=== PATIENT | male | born 1990 | race Two or more races ===

== ENCOUNTER 2017-11-21 00:28 | Emergency (ER) | payer SELFPAY ==
[2017-11-21] MEDS ORDERED: NORMAL SALINE 1000 ML 1,000 ML IV ONE (00:39)
[2017-11-21 00:59] LABS: ABSOLUTE LYMPHOCYTES (AUTO) 1.8 10^3/uL (0.5-4.7); ABSOLUTE MONOCYTES (AUTO) 0.3 10^3/uL (0.1-1.4); ABSOLUTE NEUT (AUTO) 4.9 10^3/uL (1.7-8.2); BASOPHILS % (AUTO) 0.6 % (0-2); EOSINOPHILS % (AUTO) 0.6 % (0-6); HEMATOCRIT 44.8 % (37.9-51.0); HEMOGLOBIN 15.6 g/dL (13.5-17.0); LYMPHOCYTES % (AUTO) 25.6 % (13-45); MEAN CORPUSCULAR HEMOGLOBIN 31.1 pg (27.0-33.4); MEAN CORPUSCULAR HGB CONC 34.9 g/dL (32.0-36.0); MEAN CORPUSCULAR VOLUME 89 fl (80-97); MONOCYTES % (AUTO) 4.1 % (3-13); PLATELET COUNT 260 10^3/uL (150-450); RED BLOOD COUNT 5.02 10^6/uL (4.35-5.55); SEGMENTED NEUTROPHILS % (AUTO) 69.1 % (42-78); TOTAL CELLS COUNTED % (AUTO) 100 %; WHITE BLOOD COUNT 7.1 10^3/uL (4.0-10.5)
[2017-11-21 01:17] LABS: ALANINE AMINOTRANSFERASE 46 U/L (21-72); ALBUMIN 4.6 g/dL (3.5-5.0); ALCOHOL 157 mg/dL (NONE DETECTED); ALKALINE PHOSPHATASE 103 U/L (38-126); ASPARTATE AMINO TRANSFERASE 33 U/L (17-59); BILIRUBIN,DIRECT 0.3 mg/dL (0.0-0.4); BILIRUBIN,TOTAL 0.6 mg/dL (0.2-1.3); BLOOD UREA NITROGEN 11 mg/dL (7-20); CALCIUM 9.3 mg/dL (8.4-10.2); GLUCOSE 117 mg/dL (75-110); POTASSIUM 4.1 mmol/L (3.6-5.0); TOTAL PROTEIN 7.6 g/dL (6.3-8.2)
[2017-11-21 01:22] LABS: CARBON DIOXIDE 23 mmol/L (22-30); CHLORIDE 104 mmol/L (98-107); SODIUM 148.2 mmol/L (137-145)
[2017-11-21 01:28] LABS: ANION GAP 21 (5-19)
--- NOTE | 2017-11-21 02:16 | ER Document Report ---
ED General - General Chief Complaint: ETOH Abuse Stated Complaint: UNRESPONSIVE Time Seen by Provider: 11/21/17 00:34 Notes: Patient is a 27-year-old male who presents with complaint of found unresponsive. Today drink alcohol and did cocaine. After the cocaine he did have a bloody nose. He then was found unresponsive at times was flailing about. No history of seizures. He comes in with his eyes open. He does speak Mosotho. Will ask him if he is having the pain or headache in Mosotho. He answers no. As I leave the room he then fully wakens often sits up and starts speaking with the nurses and the staff. Patient has no complaints at this time. - Related Data Allergies/Adverse Reactions: No Known Allergies Allergy (Verified 07/12/12 10:58) Past Medical History - Social History Smoking Status: Current Some Day Smoker Frequency of alcohol use: Occasional Drug Abuse: Cocaine Family History: Reviewed & Not Pertinent - Immunizations Hx Diphtheria, Pertussis, Tetanus Vaccination: Yes Review of Systems - Review of Systems -: Yes ROS unobtainable due to patient's medical condition - Review systems is limited due to patient's altered mental status. Physical Exam - Notes Notes: General Appearance: Laying in bed in no distress. Patient actually looks somewhat frustrated. He will follow commands. Vitals: reviewed, See vital signs table. Head: no swelling or tenderness to the head Eyes: PERRL, EOMI, Conjuctiva clear Mouth: No decreasd moisture. No tongue biting. Throat: No tonsillar inflammation, No airway obstruction, No lymphadenopathy Neck: Supple, no neck tenderness, No thyromegaly Lungs: No wheezing, No rales, No rhonci, No accessory muscle use, good air exchange bilaterally. Heart: Normal rate, Regular rythm, No murmur, no rub Abdomen: Normal BS, soft, No rigidity, No abdominal tenderness, No guarding, no rebound, no abdominal masses, no organomegaly Extremities: strength 5/5 in all extremities, good pulses in all extremities, no swelling or tenderness in the extremities, no edema. Skin: warm, dry, appropriate color, no rash Neuro: speech clear, oriented x 3, normal affect, responds appropriately to questions. Cranial nerves II through XII are intact. Distal sensation intact. Patient is able to move all 4 extremities. Course - Re-evaluation Re-evalutation: 11/21/17 05:51 I used [employer] insurance case manager service insurance case manager ID #[id number] to help reevaluate the patient in 2 translate exam findings and disposition to the patient and his family. Mostly members did speak Mongolian fluently. Patient did not and that is why I used the insurance case manager. Patient admits to using cocaine and alcohol. He denies doing anything else. He says it is not remember much after using the cocaine and actually passed out. Patient has a negative CT scan of the brain. He has no chest pain or shortness of breath. He is able stand and walk without any difficulty. He looks well. Feel he is safe to be discharged home at this time. Informed patient that he should never ever used cocaine again as this can lead to brain bleed, stroke, heart attack. Patient is understanding of this and says he will not use drugs again. I informed patient he should return to ER immediately if he has severe headache, chest pain, difficulty breathing, recurrent syncope, or if he feels unwell. Patient agrees with plan will be discharged home. Dictation of this chart was performed using voice recognition software; therefore, there may be some unintended grammatical errors. - Laboratory Result Diagrams: 11/21/17 00:40 11/21/17 00:40 Laboratory results interpreted by me: 11/21/17 00:40 Sodium 148.2 H Anion Gap 21 H Glucose 117 H - EKG Interpretation by Me Additional EKG results interpreted by me: 11/21/17 02:16 EKG is reviewed and interpreted by me. EKG shows sinus rhythm with rate of [address] segment elevation or depression. No ischemic T-wave inversions. Pure interval, QRS duration, QTc intervals are within normal range. No old EKG available for comparison. 11/21/17 02:32 Discharge - Discharge Clinical Impression: ETOH abuse, Cocaine abuse Altered mental status Qualifiers: Altered mental status type: unspecified Qualified Code(s): R41.82 - Altered mental status, unspecified Condition: Good Disposition: HOME, SELF-CARE Additional Instructions: Please avoid alcohol and cocaine. These caused you to become confused and pass out. Please return to the ER immediately if you have severe headaches, vomiting , chest pain, difficulty breathing, or feel unwell.
--- NOTE | 2017-11-21 02:44 | RADIOLOGY REPORT (SQ) ---
EXAM DESCRIPTION: CT CERVICAL SPINE WITHOUT CLINICAL HISTORY: altered mental status COMPARISON: None available TECHNIQUE: Axial CT of the cervical spine obtained without contrast. FINDINGS: Straightening of the cervical lordosis is likely secondary to patient positioning. The atlantoaxial, atlantodental, and occipitoatlantal intervals are preserved. 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 No fracture identified. Vertebral body height preserved. Prevertebral soft tissues are unremarkable. Intervertebral disc height preserved. Visualized skull base is intact. No fracture of the visualized facial bones. Visualized mastoid air cells and paranasal sinuses are well aerated. Visualized thyroid is unremarkable. No cervical lymphadenopathy. No pneumothorax in the visualized lung apices. DLP: 446.27 mGy-cm IMPRESSION: 1. No acute fracture or subluxation of the cervical spine. This exam was performed according to our departmental dose-optimization program, which includes automated exposure control, adjustment of the mA and/or kV according to patient size and/or use of iterative reconstruction technique.
--- NOTE | 2017-11-21 02:45 | RADIOLOGY REPORT (SQ) ---
EXAM DESCRIPTION: CT HEAD WITHOUT CLINICAL HISTORY: altered mental status COMPARISON: None available TECHNIQUE: Axial CT of the head obtained from the skull apex to the skull base without contrast. FINDINGS: No acute intracranial hemorrhage identified. No mass, mass effect, shift of the midline, abnormal extra-axial fluid collection or CT evidence of acute ischemic change identified. The ventricular system is unremarkable. No acute abnormalities of the supratentorial white matter, basal ganglia, cerebellum, or brainstem. The visualized paranasal sinuses and the mastoids are clear. No skull fracture identified. Visualized orbits and globes are unremarkable. DLP:990.56 mGy-cm IMPRESSION: 1. No acute intracranial abnormality identified. This exam was performed according to our departmental dose-optimization program, which includes automated exposure control, adjustment of the mA and/or kV according to patient size and/or use of iterative reconstruction technique.
[2017-11-21 03:57] LABS: URINE AMPHETAMINES SCREEN NEGATIVE; URINE BARBITURATES SCREEN NEGATIVE; URINE BENZODIAZEPINES SCREEN NEGATIVE; URINE COCAINE SCREEN UNCONFIRMED POSITIVE; URINE MARIJUANA (THC) SCREEN NEGATIVE; URINE METHADONE SCREEN NEGATIVE; URINE PHENCYCLIDINE SCREEN NEGATIVE
[2017-11-21 04:03] LABS: APPEARANCE,URINE CLEAR; BILIRUBIN,URINE NEGATIVE (NEGATIVE); COLOR,URINE YELLOW; GLUCOSE, URINE NEGATIVE (NEGATIVE); KETONES,URINE NEGATIVE (NEGATIVE); LEUKOCYTE ESTERASE,URINE NEGATIVE (NEGATIVE); NITRITE,URINE NEGATIVE (NEGATIVE); PROTEIN,URINE NEGATIVE (NEGATIVE); URINE SPECIFIC GRAVITY 1.008; UROBILINOGEN,URINE NEGATIVE mg/dL (<2.0)
--- NOTE | 2017-11-21 04:41 | RADIOLOGY REPORT (SQ) ---
EXAM DESCRIPTION: CHEST SINGLE VIEW CLINICAL HISTORY: altered mental status COMPARISON: None. FINDINGS: Single frontal view of the chest. Leads overlie the chest. The cardiomediastinal silhouette has normal size and contour. No consolidation, pneumothorax, or pleural effusion. No displaced rib fractures identified. Upper abdominal soft tissues are unremarkable. IMPRESSION: 1. No acute pulmonary process identified.
--- NOTE | 2017-11-21 10:30 | EKG REPORT ---
SEVERITY:- ABNORMAL ECG - SINUS RHYTHM INCOMPLETE RIGHT BUNDLE BRANCH BLOCK ST ELEV, PROBABLE NORMAL EARLY REPOL PATTERN : Confirmed by: Poonam Alvarez 21-Nov-2017 10:29:52
== END 2017-11-21 03:45 | disposition home or self-care (01) ==
LOC: ER 00:28
DX: R41.82 Altered mental status, unspecified (principal); F14.10 Cocaine abuse, uncomplicated; F10.10 Alcohol abuse, uncomplicated
CPT/HCPCS: 36415; 70450; 71045; 72125; 80053; 80307; 81001; 85025; 93005; 93010; 99285

== ENCOUNTER 2018-05-23 10:27 | Emergency (ER) | payer SELFPAY ==
[2018-05-23] MEDS ORDERED: LIDOCAINE 1%/EPINEPHRINE INJ 20 ML VIAL INJ ONE (10:39)
[2018-05-23] MEDS ORDERED: OXYCODONE-ACETAMINOPHEN 5-325 MG TABLET PO ONE (10:42)
--- NOTE | 2018-05-23 10:54 | ER Document Report ---
ED General - General Chief Complaint: Laceration Stated Complaint: LACERATION TO RIGHT LEG Time Seen by Provider: 05/23/18 10:36 Information source: Patient, Relative TRAVEL OUTSIDE OF THE [place] IN LAST 30 DAYS: No - HPI Patient complains to provider of: laceration Onset: Other - 27-year-old man that presents for evaluation of a large laceration over the back of his right leg after having slipped going down wooden stairs and hitting wooden nails. The laceration began to bleed immediately thereafter and he was in a lot of pain so they came to the emergency room is uncertain when his last tetanus shot was. - Related Data Allergies/Adverse Reactions: No Known Allergies Allergy (Verified 05/23/18 10:28) Past Medical History - General Information source: Patient - Social History Smoking Status: Unknown if Ever Smoked Family History: Reviewed & Not Pertinent Patient has suicidal ideation: No Patient has homicidal ideation: No Renal/ Medical History: Denies: Hx Peritoneal Dialysis - Immunizations Hx Diphtheria, Pertussis, Tetanus Vaccination: Yes Review of Systems - Review of Systems -: Yes All other systems reviewed and negative Physical Exam - Vital signs Vitals: Temp Pulse Resp BP Pulse Ox 99.2 F 72 18 141/87 H 97 05/23/18 10:38 05/23/18 10:38 05/23/18 10:38 05/23/18 10:38 05/23/18 10:38 - General General appearance: Appears well, Alert - HEENT Head: Normocephalic, Atraumatic Eyes: Normal Pupils: PERRL - Respiratory Respiratory status: No respiratory distress Chest status: Nontender Breath sounds: Normal Chest palpation: Normal - Cardiovascular Rhythm: Regular Heart sounds: Normal auscultation Murmur: No - Abdominal Inspection: Normal Distension: No distension Bowel sounds: Normal Tenderness: Nontender Organomegaly: No organomegaly - Back Back: Normal, Nontender - Extremities General upper extremity: Normal inspection, Nontender, Normal color, Normal ROM , Normal temperature General lower extremity: No: Randi's sign Calf: Other - The right calf demonstrates 3 long linear vertical incisions extending from just inferior to the knee to the mid calf at which point there are 4 gaping long linear lacerations extending into the subcutaneous fat and musculature, no obvious vascular injury underlying The wound was explored following administration of analgesia and copious irrigation The middle inferior wound involves the gastrocnemius muscle and the muscle belly is appreciable, the Achilles tendon is visible, it is intact with no obvious laceration or foreign body identified Foot: Other - Brisk capillary refill in the foot - Neurological Neuro grossly intact: Yes Cognition: Normal Orientation: AAOx4 [place] Coma Scale Eye Opening: Spontaneous [place] Coma Scale Verbal: Oriented [place] Coma Scale Motor: Obeys Commands [place] Coma Scale Total: 15 Speech: Normal Cranial nerves: Normal Motor strength normal: LUE, RUE, LLE, RLE - Psychological Associated symptoms: Normal affect Course - Re-evaluation Re-evalutation: 05/23/18 20:48 27-year-old with a severe laceration over the right gastrocnemius extending inferiorly to the Achilles tendon. This is a complex laceration which will require repair. Patient does not know when his last tetanus was. Following an extensive layered repair there was a reasonable cosmetic result more importantly and appropriate reduction and gaping wound. Patient tolerated the procedure well. He was told that he would need to follow-up with an orthopedist this week for his possible Achilles tendon injury. He was also instructed to do minimal movement with the leg as there is a profound amount of tension through the wound itself. He was instructed to return in 2 weeks for suture removal. At the time of discharge she was hemodynamically stable with no injuries elsewhere obviously identified. - Vital Signs Vital signs: Temp Pulse Resp BP Pulse Ox 98.3 F 77 15 141/73 H 98 05/23/18 14:37 05/23/18 14:37 05/23/18 14:37 05/23/18 14:37 05/23/18 14:37 Procedures - Laceration/Wound Repair Right Lower Leg Wound length (cm): 49 Wound's Depth, Shape: Into muscle, Irregular Laceration pre-procedure: Sterile PPE donned, Sterile drapes applied Anesthetic type: 1% Lidocaine w/epi Volume Anesthetic (mLs): 35 Wound explored: Clean, No foreign body removed Irrigated w/ Saline (mLs): 4,000 Wound Debrided: Moderate Wound Repaired With: Sutures Suture Size/Type: Vicryl, 4:0, Prolene Number of Sutures: 45 Layer Closure?: Yes Deep Layer Suture Size/Type: 4:0, Other Number Deep Layer Sutures: 13 Post-procedure wound care: Sterile dressing applied Post-procedure NV exam normal: Yes Complications: No Notes: 11/05/18 20:51 This extensive wound with gaping quality extending into the musculature underlying There were several vertical components in total approximately 49 cm in length There were multiple gaping wounds with extension into the subcutaneous fat with muscle exposure Discharge - Discharge Clinical Impression: Laceration, Tetanus toxoid vaccination administered at current visit Condition: Good Disposition: HOME, SELF-CARE Instructions: Antibiotic Ointment Protection ([facility]), Laceration Care ([facility]), Prophylactic Antibiotic ([facility]), Soap Cleansing ([facility]), Tetanus Immunization Given ([facility]) Additional Instructions: Your seen today in the emergency department for the wound to your leg. Make sure to take caution not to stretch your leg over the next week. Keep this wound dry and covered for the next 3 days, you may provide gentle cleansing over top of the wound after that with soap and water. Make sure that she schedule an appointment this week with the orthopedist provided to you to check the wound as well as the muscles underneath. Return for worsening fevers, chills, if you are unable to eat or drink or the wound begins to drain or gape open. Prescriptions: Cephalexin Monohydrate [Keflex 500 mg Capsule] 500 mg PO Q6H 10 Days #40 capsule Referrals: MICHAEL DOMINGO MD [ACTIVE STAFF] - Follow up as needed
[2018-05-23] MEDS ORDERED: DIPH/PERTUSS(ACELL)/TETANUS VAC/PF 0.5 ML SYR (>=10YO) IM ONE (14:27)
[2018-05-23 14:38] VITALS: BP 141/73
== END 2018-05-23 14:42 | disposition home or self-care (01) ==
LOC: ER 10:27
PROC: 0KQS0ZZ Repair Right Lower Leg Muscle, Open Approach (ICD-10-PCS; principal; 2018-05-23)
DX: Z23 Encounter for immunization (principal); S81.811A Laceration without foreign body, right lower leg, initial encounter; W45.8XXA Other foreign body or object entering through skin, initial encounter
CPT/HCPCS: 99282; 90471; 90715; 13132; 13133 ×9; J3490

== ENCOUNTER 2018-05-31 08:49 | Emergency (ER) | payer SELFPAY ==
[2018-05-31] MEDS ORDERED: MUPIROCIN 2% OINTMENT 22 GM TP ONE (09:55)
--- NOTE | 2018-05-31 10:01 | ER Document Report ---
ED Suture/Wound Recheck - General Chief Complaint: Suture Recheck Stated Complaint: SUTURE CHECK Time Seen by Provider: 05/31/18 09:36 Information source: Patient, [facility] Records Notes: Patient is a 27-year-old male comes in emergency room for a wound recheck and suture removal. Patient was seen on 05/23/2018 for a slip and fall down some wooden steps and he lacerated the back of his right leg. The extensive laceration was on the gastrocnemius muscle itself. It appears to have had extensive repair and runs approximately 10-12 inches on the longest laceration. Patient was instructed to come back and have it rechecked and that is what he is doing today. He only speaks Peruvian and we used our new interpretation computer for translation which worked out well. Patient states he has no complaints he has been keeping it dry and changing dressings twice a day. TRAVEL OUTSIDE OF THE [place] IN LAST 30 DAYS: No - HPI Quality of pain: No pain Symptoms since procedure: Drainage Exacerbated by: Denies Relieved by: Denies - Related Data Allergies/Adverse Reactions: No Known Allergies Allergy (Verified 05/31/18 08:51) Past Medical History - General Information source: Patient - Social History Smoking Status: Never Smoker Cigarette use (# per day): No Chew tobacco use (# tins/day): No Smoking Education Provided: No Frequency of alcohol use: Rare Drug Abuse: None Family History: Reviewed & Not Pertinent Patient has suicidal ideation: No Patient has homicidal ideation: No Renal/ Medical History: Denies: Hx Peritoneal Dialysis - Immunizations Hx Diphtheria, Pertussis, Tetanus Vaccination: Yes Review of Systems - Review of Systems Constitutional: No symptoms reported EENT: No symptoms reported Cardiovascular: No symptoms reported Respiratory: No symptoms reported Gastrointestinal: No symptoms reported Genitourinary: No symptoms reported Male Genitourinary: No symptoms reported Musculoskeletal: No symptoms reported Skin: See HPI, Other - Laceration gastrocnemius Hematologic/Lymphatic: No symptoms reported Neurological/Psychological: No symptoms reported Physical Exam - Vital signs Vitals: Temp Pulse Resp BP Pulse Ox 98.8 F 72 20 142/83 H 94 05/31/18 08:58 05/31/18 08:58 05/31/18 08:58 05/31/18 08:58 05/31/18 08:58 Interpretation: Hypertensive - Notes Notes: PHYSICAL EXAMINATION: GENERAL: Well-appearing, well-nourished and in no acute distress. HEAD: Atraumatic, normocephalic. EYES: Pupils equal round and reactive to light, extraocular movements intact, sclera anicteric, conjunctiva are normal. ENT: Nares patent, oropharynx clear without exudates. Moist mucous membranes. NECK: Normal range of motion, supple without lymphadenopathy LUNGS: Breath sounds clear to auscultation bilaterally and equal. No wheezes rales or rhonchi. HEART: Regular rate and rhythm without murmurs ABDOMEN: Soft, nontender, nondistended abdomen. No guarding, no rebound. No masses appreciated. Musculoskeletal: Examination of patient's right leg gastrocnemius area where repair was shows there to be a well-healing scar from top to bottom with the exception of a portion that is approximately 1 inch below the gastroc anemias muscle. There is an area there that is still somewhat raw this is where the extensive deep portion of the laceration was. Though it is not completely healed yet it does not appear to be infected. The wound itself is in great shape it is just not time for the sutures to be removed.. NEUROLOGICAL: Normal speech, normal gait. Normal sensory, motor exams PSYCH: Normal mood, normal affect. SKIN: The area around the sutures is healing very well with the exception of the one area as described above. The area itself is where the dermis had been missing from the original avulsion of the laceration and is still taking time for it to heal. Again it does not appear to be infected. Course - Re-evaluation Re-evalutation: 05/31/18 10:01 After reevaluation the patient's laceration I determined that at this time is still needs a few more days of healing. It is only been 8 days since the original incident and it is on an area of a high stress. The one area that is still somewhat raw is the area of the deepest portion of the laceration and does appear to be healing without infection. I am going to give the patient some Bactroban cream to apply twice a day to that one area and have informed him to continue with dressings on that one portion twice a day. I have also informed him he can take a shower and allow water to run over top of it to dry it very carefully and let it air dry completely before reapplying the dressing. I am having him come back on 06 June for recheck and most likely removal of the sutures. I have also informed him that if for any reason it does not appear to be healing well to come back sooner. - Vital Signs Vital signs: Temp Pulse Resp BP Pulse Ox 98.8 F 72 20 142/83 H 94 05/31/18 08:58 05/31/18 08:58 05/31/18 08:58 05/31/18 08:58 05/31/18 08:58 Discharge - Discharge Clinical Impression: Encounter for wound re-check Condition: Stable Disposition: HOME, SELF-CARE Instructions: Laceration Care ([facility]) Additional Instructions: As we discussed so okay to take a shower and allow water to run over top of the wound but dry it very carefully and let it air dry completely before reapplying any dressing. I am providing you a antibiotic cream to put on the area that is still losing some to be applied twice a day. As we also discussed that when should return to the emergency room on 06 June for a recheck. At this time we should be able to remove the sutures. However if at any time it appears that this is not healing properly or you have any concerns come back sooner. Prescriptions: Cephalexin Monohydrate [Keflex 500 mg Capsule] 500 mg PO Q6H 7 Days #28 capsule Forms: Elevated Blood Pressure, Return to Work
[2018-05-31 10:17] VITALS: BP 141/75
== END 2018-05-31 10:21 | disposition home or self-care (01) ==
LOC: ER 08:49
DX: S86.1 Injury of other muscle(s) and tendon(s) of posterior muscle group at lower leg level (principal); S81.811D Laceration without foreign body, right lower leg, subsequent encounter; W10.8XXD Fall (on) (from) other stairs and steps, subsequent encounter
CPT/HCPCS: 99282; J3490

== ENCOUNTER 2018-06-06 12:31 | Emergency (ER) | payer SELFPAY ==
--- NOTE | 2018-06-06 13:57 | ER Document Report ---
ED Wound - General Chief Complaint: Wound Recheck Stated Complaint: WOUND CHECK Time Seen by Provider: 06/06/18 13:34 Mode of Arrival: Ambulatory Information source: Patient, [facility] Records Notes: Patient is a 27-year-old male who returns for a wound recheck of his right gastrocnemius wound repair. Patient was seen on May 23 original injury where he lacerated the back of his right gastrocnemius. The repair was substantial and required approximately 70 plus sutures to be placed. Patient returned on May 31 for which day I saw him in wound recheck and felt that it needed a few more days of healing. Patient had one area approximately 8 cm long by 5 cm wide that was very deep into the gastrocnemius muscle and where there was more tissue missing than anywhere else on the injury. This area has progressed very well considering the original wound. Patient has no complaints and has done well keeping it cleaned and states he is anxious to get back to work. We are using a translation machine computer the gives his real-time translation. TRAVEL OUTSIDE OF THE [place] IN LAST 30 DAYS: No - HPI Patient complains to provider of: Laceration Occurred: Other - 13 days Onset/Duration: Better Quality of pain: No pain Severity: None Pain Level: 0 Context: denies: Work related Skin Temperature: Warm Capillary refill: < 3 seconds Sensations intact: Yes Distal pulses present: Yes Associated Symptoms: denies: Drainage, Redness, Swelling - Related Data Allergies/Adverse Reactions: No Known Allergies Allergy (Verified 05/31/18 08:51) Past Medical History - General Information source: Patient, [facility] Records - Social History Smoking Status: Never Smoker Cigarette use (# per day): No Chew tobacco use (# tins/day): No Smoking Education Provided: No Frequency of alcohol use: None Drug Abuse: None Family History: Reviewed & Not Pertinent Patient has suicidal ideation: No Patient has homicidal ideation: No Renal/ Medical History: Denies: Hx Peritoneal Dialysis - Immunizations Hx Diphtheria, Pertussis, Tetanus Vaccination: Yes Review of Systems - Review of Systems Constitutional: No symptoms reported EENT: No symptoms reported Cardiovascular: No symptoms reported Respiratory: No symptoms reported Gastrointestinal: No symptoms reported Genitourinary: No symptoms reported Male Genitourinary: No symptoms reported Musculoskeletal: No symptoms reported Skin: See HPI, Other - Wound check Hematologic/Lymphatic: No symptoms reported Neurological/Psychological: No symptoms reported -: Yes All other systems reviewed and negative Physical Exam - Vital signs Vitals: Temp Pulse Resp BP Pulse Ox 98.7 F 81 12 124/84 98 06/06/18 12:40 06/06/18 12:40 06/06/18 12:40 06/06/18 12:40 06/06/18 12:40 Interpretation: Normal - Notes Notes: PHYSICAL EXAMINATION: GENERAL: This is a well-nourished well-developed 27-year-old male who is in no apparent distress on physical examination. HEAD: Atraumatic, normocephalic. NECK: Normal range of motion, supple without lymphadenopathy LUNGS: Breath sounds clear to auscultation bilaterally and equal. No wheezes rales or rhonchi. HEART: Regular rate and rhythm without murmur Musculoskeletal: The area of concern is the right posterior lower extremity/ gastrocnemius muscle. Evaluation of the muscle itself shows there is good flexion and extension of the ankle. Patient has good strength against resistance to both flexion and extension and as well as standing. The wound itself appears remarkable in healing. There is an area as stated this approximately 10 x 4 or 5 cm that is still somewhat reddened it appears more irritated with the sutures there and is an area where most of the dermis had been patched together and has since . The area in the tissue looks healthy. There is some dehiscence while removing the sutures but is very minimal and it is very superficial now. Most of the wound in this area has healed from second intent and it again looks remarkably compared to where he was at when he started. NEUROLOGICAL: Cranial nerves grossly intact. Normal speech, normal gait. Normal sensory, motor exams PSYCH: Normal mood, normal affect. SKIN: Warm, Dry, normal turgor, no rashes or lesions noted. 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 He will finish up his antibiotics we will not anymore. I went back into reexamine the area there were 73 total sutures removed reexamination does not show any remaining sutures. At this point we will allow patient to be discharged home and return to ER only if he has any concerns. 06/06/18 14:15 Procedural suture removal area was cleaned with alcohol prior to removing the sutures. We used tweezers with scissors and no complications. - Vital Signs Vital signs: Temp Pulse Resp BP Pulse Ox 98.7 F 81 12 124/84 98 06/06/18 12:40 06/06/18 12:40 06/06/18 12:40 06/06/18 12:40 06/06/18 12:40 Procedures - Immobilization Right Leg Time completed: 14:20 Pre-Proc Neuro Vasc Exam: Normal Immobilizer type: Cash wrap Performed by: PCT Post-Proc Neuro Vasc Exam: Normal, Unchanged from pre-exam Alignment checked and good: Yes Discharge - Discharge Clinical Impression: Encounter for re-check of laceration wound, Visit for suture removal Condition: Stable Disposition: HOME, SELF-CARE Instructions: Suture Removal Additional Instructions: Home today and leave area bandaged till tomorrow. Tomorrow patient can resume normal activities however still do not want him to go into a [facility] dirty water. He can return to work next scheduled shift and activity as he can tolerate. At this point no restrictions with the exception of no dirty water. Forms: Return to Work Referrals: [facility] [NO LOCAL MD] - Follow up as needed
[2018-06-06 14:33] VITALS: BP 134/77
== END 2018-06-06 14:33 | disposition home or self-care (01) ==
LOC: ER 12:31
DX: S81.811D Laceration without foreign body, right lower leg, subsequent encounter (principal); X58.XXXD Exposure to other specified factors, subsequent encounter
CPT/HCPCS: 99283